=== PATIENT | male | born 1965 | race Caucasian/White ===

== ENCOUNTER 2016-06-20 08:38 | Emergency (ER) | payer OTHER ==
[~2016-06-20] VITALS: Ht 177.8 cm; Wt 81.7 kg
[2016-06-20 08:45] VITALS: TEMP 36.5; Ht 177.8 cm; Wt 81.7 kg
[2016-06-20] MEDS ORDERED: ASPI325T45 PO (08:51)
[2016-06-20] MEDS ORDERED: ONDANSETRON INJ 2 MG/ML 2 ML VIAL IV STA (08:59)
[2016-06-20] MEDS ORDERED: SODIUM CHLORIDE 0.9% 1000ML 1,000 ML IV STA (08:59)
[2016-06-20 09:21] LABS: BASO % 0.1 %; BASO ABS # 0.01 K/uL (0-0.2); COMPLETE YES; EOS % 0.1 %; HEMATOCRIT 42.5 % (42-52); IG% 0.3 %; LYMPH % 1.5 %; LYMPH ABS # 0.22 K/uL (1.2-3.4); MEAN CELL VOLUME 88.5 fL (80-100); MEAN CORPUSCULAR HEMOGLOBIN 32.3 pg (25-34); MEAN CORPUSCULAR HGB CONC 36.5 g/dl (32-36); MEAN PLATELET VOLUME 10.3 fL (7.4-10.4); MONO % 3.4 %; NEUT % 94.6 %; PLATELET COUNT 250 K/uL (130-400); WHITE BLOOD COUNT 15.09 K/uL (4.8-10.8)
[2016-06-20 09:38] LABS: BUN/CREATININE RATIO 18.7 (10-20); CREATININE 0.9 mg/dl (0.60-1.40); POTASSIUM 3.6 mmol/L (3.5-5.1)
--- NOTE | 2016-06-20 09:57 | DIAGNOSTIC IMAGING REPORT ---
ABDOMEN 2VIEW W/PA CHEST RTN CLINICAL HISTORY: Generalized abdominal pain COMPARISON STUDY: No previous studies for comparison. FINDINGS: The erect chest reveals no free air. There is no focal pulmonary consolidation. Erect and supine views the abdomen reveal multiple right abdominal air-fluid levels most of which appear colonic. There are no transition zones indicate bowel obstruction. IMPRESSION: 1. No evidence of bowel obstruction. No evidence of free air 2. Multiple right-sided air-fluid levels, likely colonic. Electronically signed by: Jeff Camara M.D. 06/20/2016 9:56 AM Dictated Date/Time: 06/20/2016 9:55 AM
[2016-06-20 11:15] LABS: URINE APPEARANCE CLEAR (CLEAR); URINE BILIRUBIN NEG (NEG); URINE COLOR YELLOW; URINE NITRITE NEG (NEG); URINE PH >= 9.0 (4.5-7.5); URINE SPECIFIC GRAVITY 1.024 (1.000-1.030); UROBILINOGEN NEG (NEG)
[2016-06-20 11:16] LABS: MANUAL MICROSCOPIC REQUIRED? NO; REVIEW REQ? NO
[2016-06-20] MEDS ORDERED: ONDA4TAB46 PO (11:53)
[2016-06-20 12:10] VITALS: BP 114/82; PULSE 118; O2SAT 98
--- NOTE | 2016-06-20 12:58 | EMERGENCY ROOM VISIT NOTE ---
ED Visit Note First contact with patient: 08:48 Chief Complaint: Vomiting and diarrhea. History of Present Illness: Mr. Garcia is a 51 year-old white male who ambulates into the ED complaining of nausea, vomiting, diarrhea and left lower quadrant abdominal pain. Historically patient reports no significant gastrointestinal or abdominal surgeries. He does report he said left lower quadrant pain for the last couple of years but it has been mild in intensity and has never had it evaluated. Patient reports a acute onset of nausea, vomiting and diarrhea that started approximately 7 hours ago. He reports since that time his symptoms have been constant. He reports she's had about 7-8 episodes of vomiting and about 4-5 episodes of diarrhea. He relates these symptoms to eating last night at approximately 10:00 PM. He queries if this could possibly be food poisoning. He has not identified any aggravating or alleviating factors related to these symptoms. He has not taken any medications for these symptoms prior to arrival at the hospital. Associated with the symptoms he does report he is having left lower quadrant pain as noted previously this is historically been for the last couple of years. He has not identified any increasing pain in his abdomen. He describes his pain as an achy sensation. He rates this discomfort 3/10. Pain is nonradiating. Associated with his symptoms he does report he feels like he could be dehydrated with a dry mouth and sensations of fast breathing but not shortness of breath. Patient denies fevers, chills, sweats, skin eruptions, skin color changes, upper respiratory tract symptoms, chest pain, hematochezia, hematemesis, melena , constipation, urinary symptoms, hematuria, back/flank pain. Review of Systems: As noted above in history of present illness. All body systems were reviewed and found to be negative as noted above. Past Medical History: Hypertension, unspecified skin disorder, unspecified jaw surgery and status post tonsillectomy. Current Medications: Aspirin. Allergies to Medications: Patient denies. Social History: Patient is currently employed; he lives by himself and feels safe in his home environment; he denies tobacco use and admits to alcohol use. Physical Examination: Vital Signs: Date Time Temp Pulse Resp B/P Pulse Ox O2 Delivery O2 Flow Rate FiO2 06/20/16 12:10 118 18 114/82 98 06/20/16 10:50 109 20 114/83 100 Room Air 06/20/16 09:18 99 06/20/16 09:16 96 16 121/75 96 Room Air 06/20/16 08:45 36.5 122 18 130/83 96 Room Air GENERAL: 51-year-old male in mild distress due to symptoms, nontoxic-appearing, afebrile and hemodynamically stable. NEUROLOGICAL: Awake, alert and oriented to person, place and time. Answering questions appropriately and following commands. Normal gait. Good hand eye coordination. SKIN: Warm, dry and pink. No soft tissue eruptions or trauma noted. HEENT: Atraumatic and normocephalic. PERRLA. Sclera white and conjunctiva pink. Oral cavity dry and pink. Pharynx is nonerythematous or edematous. Speech normal. No lymphadenopathy. Trachea midline. No jugular venous distention. BACK: No tenderness over the bony spine. No CVA tenderness. THORAX: Lungs sounds are clear to auscultation and equal bilaterally with symmetrical chest wall. No wheezing, rales or rhonchi. No crepitus, tenderness , subcutaneous air or deformities noted. HEART: Regular rate and rhythm. No gallops, rubs or murmurs are appreciated. ABDOMEN: Flat, soft and nontender. Decreased bowel sounds in all quadrants. No guarding, rigidity or organomegaly. EXTREMITIES: Moves all extremities well on command and with purpose. All distal neurovascular statuses are intact and equal bilaterally. ED Course: Patient is assessed as noted above. Laboratory Testing: Test 06/20/16 09:07 06/20/16 10:54 Range/Units White Blood Count 15.09 4.8-10.8 K/uL Red Blood Count 4.80 4.7-6.1 M/uL Hemoglobin 15.5 14.0-18.0 g/dL Hematocrit 42.5 42-52 % Mean Corpuscular Volume 88.5 80-100 fL Mean Corpuscular Hemoglobin 32.3 25-34 pg Mean Corpuscular Hemoglobin Concent 36.5 32-36 g/dl Platelet Count 250 130-400 K/uL Mean Platelet Volume 10.3 7.4-10.4 fL Neutrophils (%) (Auto) 94.6 % Lymphocytes (%) (Auto) 1.5 % Monocytes (%) (Auto) 3.4 % Eosinophils (%) (Auto) 0.1 % Basophils (%) (Auto) 0.1 % Neutrophils # (Auto) 14.30 1.4-6.5 K/uL Lymphocytes # (Auto) 0.22 1.2-3.4 K/uL Monocytes # (Auto) 0.51 0.11-0.59 K/uL Eosinophils # (Auto) 0.01 0-0.5 K/uL Basophils # (Auto) 0.01 0-0.2 K/uL RDW Standard Deviation 40.4 36.4-46.3 fL RDW Coefficient of Variation 12.6 11.5-14.5 % Immature Granulocyte % (Auto) 0.3 % Immature Granulocyte # (Auto) 0.04 0.00-0.02 K/uL Sodium Level 143 136-145 mmol/L Potassium Level 3.6 3.5-5.1 mmol/L Chloride Level 106 98-107 mmol/L Carbon Dioxide Level 22 21-32 mmol/L Anion Gap 15.0 3-11 mmol/L Blood Urea Nitrogen 17 7-18 mg/dl Creatinine 0.90 0.60-1.40 mg/dl Est Creatinine Clear Calc Drug Dose 99.1 ml/min Estimated GFR () 113.4 Estimated GFR (Non- 97.9 BUN/Creatinine Ratio 18.7 10-20 Random Glucose 131 70-99 mg/dl Calcium Level 9.0 8.5-10.1 mg/dl Total Bilirubin 0.8 0.2-1 mg/dl Direct Bilirubin 0.1 0-0.2 mg/dl Aspartate Amino Transf (AST/SGOT) 16 15-37 U/L Alanine Aminotransferase (ALT/SGPT) 26 12-78 U/L Alkaline Phosphatase 62 45-117 U/L Total Protein 7.6 6.4-8.2 gm/dl Albumin 4.1 3.4-5.0 gm/dl Lipase 99 73-393 U/L Urine Color YELLOW Urine Appearance CLEAR CLEAR Urine pH >= 9.0 4.5-7.5 Urine Specific [place] 1.024 1.000-1.030 Urine Protein NEG NEG Urine Glucose (UA) NEG NEG Urine Ketones 1+ NEG Urine Occult Blood NEG NEG Urine Nitrite NEG NEG Urine Bilirubin NEG NEG Urine Urobilinogen NEG NEG Urine Leukocyte Esterase NEG NEG Acute Abdominal X-Ray Series: Was read by myself and the radiologist and shows A normal-appearing chest with no infiltrates, effusions or pneumothorax. Normal heart silhouette and normal bony periods. Abdominal component shows a nonobstructive gas pattern with multiple right-sided abdominal air-fluid levels but no transition zones indicating bowel obstruction. Patient was hydrated with normal saline and received 4 mg of Zofran IV for nausea. Patient was reassessed multiple times during his stay in the emergency department. Patient's case was reviewed with Dr. Gonzalez; we agreed on diagnostic approach, treatment, disposition and plan. Patient was educated about tonight's findings and instructed on his treatment plan; he verbalizes understanding and agreement with this plan. Clinical Impression: Nausea, vomiting and diarrhea. Abdominal pain. Decision-Making: Initially my differential diagnosis I considered colitis, diverticulitis, gastroenteritis, bowel obstruction, hepatitis, pancreatitis and other causes. Disposition: Patient discharged home in stable condition; prior to departure he was reassessed and subjectively reported that he was pain and symptom-free; reevaluation of his abdominal pain shows that no tenderness or guarding. Plan: Use 650 mg of acetaminophen or 600 mg of ibuprofen every 6 hours as needed for pain. Use Zofran 4 mg every 6 hours as needed for nausea/vomiting. Use [id number] Imodium for return of diarrhea; follow packaging instructions. Use a bland diet for the next 48 hours and increase clear fluids. Follow-up with your family physician for recheck early next week; Wednesday or Wednesday. Return to the ED for worsening/uncontrolled nausea/vomiting/diarrhea, fevers, bloody stools, bloody vomitus, worsening abdominal pain or any new/concerning symptoms.
== END 2016-06-20 12:11 | disposition home or self-care (01) ==
LOC: C.EDB 08:42 → C.EDA 12:11
DX: R11.2 Nausea with vomiting, unspecified (principal); R19.7 Diarrhea, unspecified; R10.32 Left lower quadrant pain; I10 Essential (primary) hypertension; Z98.890 Other specified postprocedural states; Z90.89 Acquired absence of other organs

== ENCOUNTER → 2016-09-01 | Outpatient (CLI) | payer OTHER ==
[~2016-09-01] MED LIST: ASCA500 PO; ASPI325T45 PO; ESCI10TA17 PO; FERR1TAB13 PO; IBUP-1050 PO; MULT-506 PO; MULTCAP7 PO; ONDA4TAB46 PO
--- NOTE | 2016-09-01 13:56 | DIAGNOSTIC IMAGING REPORT ---
RIGHT KNEE 1 OR 2 VIEWS ROUTINE CLINICAL HISTORY: Bilateral knee pain. COMPARISON: None FINDINGS: Alignment of the right knee is anatomic. Joint spaces are preserved. There is no fracture, joint effusion or suspicious lesion. IMPRESSION: Normal right knee radiographs. Electronically signed by: Jay Moore M.D. 09/01/2016 1:54 PM Dictated Date/Time: 09/01/2016 1:54 PM
--- NOTE | 2016-09-01 13:56 | DIAGNOSTIC IMAGING REPORT ---
LEFT KNEE 1 OR 2 VIEWS ROUTINE CLINICAL HISTORY: M25.569 Chronic knee [id number] COMPARISON: None. DISCUSSION: The bones and joint spaces appear intact. There is no evidence of fracture, dislocation or bony disease. There is no evidence for soft tissue swelling. IMPRESSION: Negative study. Electronically signed by: Jose Manuel Corey M.D. 09/01/2016 1:54 PM Dictated Date/Time: 09/01/2016 1:53 PM
--- NOTE | 2016-09-01 13:57 | DIAGNOSTIC IMAGING REPORT ---
LEFT HIP UNILATERAL 2 VIEWS CLINICAL HISTORY: Bilateral hip pain. COMPARISON: None FINDINGS: Alignment of left hip is anatomic. There is no fracture or suspicious lesion. There is no evidence for avascular necrosis. There is mild osteophytosis. Joint space is preserved. IMPRESSION: Mild osteoarthritis of the left hip. Electronically signed by: Jay Moore M.D. 09/01/2016 1:55 PM Dictated Date/Time: 09/01/2016 1:55 PM
--- NOTE | 2016-09-01 13:57 | DIAGNOSTIC IMAGING REPORT ---
RIGHT HIP UNILATERAL 2 VIEWS CLINICAL HISTORY: Bilateral hip pain. COMPARISON: None FINDINGS: Alignment of the right hip is anatomic. There is no fracture or suspicious lesion. There is mild superior joint space narrowing with osteophytosis. There is no evidence for avascular necrosis. IMPRESSION: Mild osteoarthritis of the right hip. Electronically signed by: Jay Moore M.D. 09/01/2016 1:55 PM Dictated Date/Time: 09/01/2016 1:54 PM
[2016-09-01 17:14] LABS: HEMATOCRIT 38.8 % (42-52); MEAN CORPUSCULAR HEMOGLOBIN 31.1 pg (25-34); MEAN CORPUSCULAR HGB CONC 34.5 g/dl (32-36); MEAN PLATELET VOLUME 10.8 fL (7.4-10.4); PLATELET COUNT 244 K/uL (130-400); RED BLOOD COUNT 4.31 M/uL (4.7-6.1); WHITE BLOOD COUNT 4.91 K/uL (4.8-10.8)
[2016-09-01 17:25] LABS: ALT/SGPT 25 U/L (12-78); BLOOD UREA NITROGEN 13 mg/dl (7-18); BUN/CREATININE RATIO 15.3 (10-20); CALCIUM 8.7 mg/dl (8.5-10.1); CARBON DIOXIDE 28 mmol/L (21-32); CHLORIDE 106 mmol/L (98-107); CHOLESTEROL 145 mg/dl (0-200); CREATININE 0.87 mg/dl (0.60-1.40); GLUCOSE 97 mg/dl (70-99); POTASSIUM 3.9 mmol/L (3.5-5.1); SODIUM 141 mmol/L (136-145); TRIGLYCERIDES 50 mg/dl (0-150); VERY LOW DENSITY LIPOPROT CALC 10 mg/dl
[2016-09-01 17:35] LABS: ALB/GLOB RATIO 1.3 (0.9-2); ALKALINE PHOSPHATASE 56 U/L (45-117); AST/SGOT 15 U/L (15-37); CHOLESTEROL/HDL RATIO 2.6; HDL CHOLESTEROL 55 mg/dl; LDL CHOLESTEROL CALCULATED 80 mg/dl
== END | disposition home or self-care (01) ==
LOC: C.RADBC 13:07
PROVIDERS: ATTEND Internal Medicine
DX: Z00.00 Encounter for general adult medical examination without abnormal findings (principal); F41.9 Anxiety disorder, unspecified; M25.561 Pain in right knee; M25.562 Pain in left knee; M16.0 Bilateral primary osteoarthritis of hip

== ENCOUNTER → 2017-03-15 | Outpatient (CLI) | payer OTHER ==
[~2017-03-15] MED LIST changes: -ASCA500 PO; -ESCI10TA17 PO; -FERR1TAB13 PO; -IBUP-1050 PO; -MULT-506 PO; -MULTCAP7 PO; -ONDA4TAB46 PO
[2017-03-15 13:25] LABS: HEMATOCRIT 39.4 % (42-52); MEAN CELL VOLUME 92.7 fL (80-100); MEAN CORPUSCULAR HEMOGLOBIN 32.9 pg (25-34); MEAN CORPUSCULAR HGB CONC 35.5 g/dl (32-36); MEAN PLATELET VOLUME 10.9 fL (7.4-10.4); PLATELET COUNT 211 K/uL (130-400); RED BLOOD COUNT 4.25 M/uL (4.7-6.1)
[2017-03-15 14:19] LABS: FERRITIN 116.6 ng/ml (8.0-388.0)
== END | disposition home or self-care (01) ==
LOC: C.LABBC 11:35
PROVIDERS: ATTEND Internal Medicine
DX: D64.9 Anemia, unspecified (principal)

== ENCOUNTER → 2017-04-28 | Day surgery (SDC) | payer OTHER ==
[2017-04-19 12:06] VITALS: Ht 177.8 cm; Wt 78.2 kg
[~2017-04-28] VITALS: Ht 177.8 cm; Wt 78.2 kg
[~2017-04-28] MED LIST changes: +ASCA500 PO; -ASPI325T45 PO; +ESCI10TA17 PO; +FERR1TAB13 PO; +IBUP-1050 PO; +LIDOCAINE HCL 2% 2 ML VIAL (20MG/ML) ONE; +MULT-506 PO; +MULTCAP7 PO; +PROPOFOL IV EMULSION 10 MG/ML 20 ML VIAL IV ONE; +SODIUM CHLORIDE 0.9% 500ML 500 ML IV ONE
--- NOTE | 2017-04-28 10:16 | Endo History and Physical ---
History & Physical Date of Service: Apr 28, 2017. Chief Complaint: Screening for Colon Cancer Referring Physician: Dr. Brenner History of Present Illness 51 yo CM who presents for screening colonoscopy. Past Surgical History Hx Cardiac Surgery: No Hx Internal Defibrillator: No Hx Pacemaker: No Hx Abdominal Surgery: No Hx of Implantable Prosthesis: No Hx Post-Op Nausea and Vomiting: No Hx Cancer Surgery: No Hx Thoracic Surgery: No Hx Orthopedic: No Hx Urinary Tract Surgery: No Family History None Social History Smoking Status: Former Smoker Hx Substance Use: No Hx Alcohol Use: Yes (1 DRINK/WEEK) Allergies Coded Allergies: No Known Allergies (Verified , 04/28/17) Current Medications Reported Home Medications Medications Dose Route/Sig Max Daily Dose Days Date Category Eye Vitamins (Multiple Vitamins W/ Minerals) 1 Cap Cap 1 Cap PO DAILY 04/19/17 Reported Advil (Ibuprofen) 200 Mg Tab 400-600 Mg PO Q6H PRN 04/19/17 Reported Multivitamin (Multivitamins) Tab 1 Tab PO DAILY 04/19/17 Reported Kp Ferrous Sulfate (Ferrous Sulfate) 325 Mg Tab 1 Tab PO DAILY 04/19/17 Reported Vitamin C (Ascorbic Acid) 500 Mg Tab 1 Tab PO DAILY 04/19/17 Reported Lexapro (Escitalopram Oxalate) 10 Mg Tab 10 Mg PO MIDDAY 04/19/17 Reported Vital Signs Weight (Kilograms): 78.18 Height (Feet): 5 Height (Inches): 10 Date Time Temp Pulse Resp B/P (MAP) Pulse Ox O2 Delivery O2 Flow Rate FiO2 04/28/17 10:00 36.5 75 20 136/88 (104) 100 Room Air Physical Exam General Appearance: WD/WN, no apparent distress Respiratory/Chest: Auscultation: breath sounds normal Cardiovascular: Heart Auscultation: RRR Abdomen: Bowel Sounds: normal Inspection & Palpation: soft, non-distended, no tenderness, guarding & rebound Assessment and Plan Assessment: 51 yo CM who presents for screening colonoscopy. Plan: Proceed with colonoscopy.
--- NOTE | 2017-04-28 10:58 | Anesthesiology Progress Note ---
Anesthesia Post Op Note Date & Time Apr 28, 2017 at 10:58 Vital Signs Pain Intensity: 0 Vital Signs Past 12 Hours Date Time Temp Pulse Resp B/P (MAP) Pulse Ox O2 Delivery O2 Flow Rate FiO2 04/28/17 10:42 71 12 101/67 (78) 97 Nasal Cannula 2 04/28/17 10:00 36.5 75 20 136/88 (104) 100 Room Air Notes Mental Status: alert / awake / arousable, participated in evaluation Pt Amnestic to Procedure: Yes Nausea / Vomiting: adequately controlled Pain: adequately controlled Airway Patency, RR, SpO2: stable & adequate BP & HR: stable & adequate Hydration State: stable & adequate Anesthetic Complications: no major complications apparent
--- NOTE | 2017-04-28 11:01 | Discharge Instructions ---
Endoscopy Patient Instructions Date / Procedure(s) Performed Apr 28, 2017. Colonoscopy Allergy Information Coded Allergies: No Known Allergies (Verified , 04/28/17) Discharge Date / Findings Apr 28, 2017. Colon polyps Diverticulosis Internal hemorrhoids Medication Instructions OK to resume all medications today as prescribed Reported Home Medications Medications Dose Route/Sig Max Daily Dose Days Date Category Eye Vitamins (Multiple Vitamins W/ Minerals) 1 Cap Cap 1 Cap PO DAILY 04/19/17 Reported Advil (Ibuprofen) 200 Mg Tab 400-600 Mg PO Q6H PRN 04/19/17 Reported Multivitamin (Multivitamins) Tab 1 Tab PO DAILY 04/19/17 Reported Kp Ferrous Sulfate (Ferrous Sulfate) 325 Mg Tab 1 Tab PO DAILY 04/19/17 Reported Vitamin C (Ascorbic Acid) 500 Mg Tab 1 Tab PO DAILY 04/19/17 Reported Lexapro (Escitalopram Oxalate) 10 Mg Tab 10 Mg PO MIDDAY 04/19/17 Reported Provider Instructions Activity Restrictions - No exercising or heavy lifting for 24 hours. - Do not drink alcohol the day of the procedure. - Do not drive a car or operate machinery until the day after the procedure. - Do not make any important decisions or sign important papers in 24 hours after the procedure. Following Day: - Return to full activity which may include returning to work/school. Diet Start your diet with liquids and light foods (jello, soup, juice, toast). Then eat your usual diet if not nauseated. Treatment For Common After Affects For mild abdominal pain, bloating, or excessive gas: - Rest - Eat lightly - Lie on right side Follow-Up Information Follow-up with Dr. Brenner as scheduled Anesthesia Information What You Should Know You have had a procedure that required some medicine to reduce anxiety and discomfort. This treatment is called moderate sedation. After receiving the treatment, you may be sleepy, but you will be able to breathe on your own. The effects of the treatment may last for several hours. Follow these instructions along with Activity/Diet recommendations noted above: * Do NOT do anything where dizziness or clumsiness would be dangerous. * Rest quietly at home today, then you can be up and about tomorrow. * Have a responsible person stay with you the rest of today. * You may have had an I.V. today. If so, you may take the dressing off later today. Recommendations Call your doctor if: * Trouble breathing * Continuous vomiting for more than 24 hours * Temperature above 101 degrees * Severe abdominal pain or bloating * Pain not relieved by pain medicine ordered * There is increased drainage or redness from any incision * A large amount of rectal bleeding greater than 2-3 tablespoons. (If you had a polyp/s removed or have hemorrhoids, a small amount of blood - from the rectum is to be expected.) * You have any unanswered questions or concerns. IN THE EVENT OF A SERIOUS EMERGENCY, GO TO THE NEAREST EMERGENCY ROOM Your discharge instructions were prepared by provider Benjamin Tovar. Patient Instructions Signature Page Arsen Garcia Patient (or Guardian) Signature/Date: I have read and understand the instructions given to me by my caregivers. Caregiver/RN/Doctor Signature/Date: The above-named patient and/or guardian has received patient instructions on this date. + Original Patient Signature Page (only) stays with chart. Please make copy for patient.
--- NOTE | 2017-04-28 11:09 | GI REPORT ---
Procedure Date: 04/28/2017 10:14 AM Procedure: Colonoscopy Indications: Screening for colorectal malignant neoplasm Medicines: Monitored Anesthesia Care Complications: No immediate complications. Estimated Blood Loss: Estimated blood loss: none. Procedure: Pre-Anesthesia Assessment: - Prior to the procedure, a History and Physical was performed, and patient medications and allergies were reviewed. The patient's tolerance of previous anesthesia was also reviewed. The risks and benefits of the procedure and the sedation options and risks were discussed with the patient. All questions were answered, and informed consent was obtained. Prior Anticoagulants: The patient has taken no previous anticoagulant or antiplatelet agents. ASA Grade Assessment: I - A normal, healthy patient. After reviewing the risks and benefits, the patient was deemed in satisfactory condition to undergo the procedure. After I obtained informed consent, the scope was passed under direct vision. Throughout the procedure, the patient's blood pressure, pulse, and oxygen saturations were monitored continuously. The scope was introduced through the anus and advanced to the terminal ileum. The colonoscopy was performed without difficulty. The patient tolerated the procedure well. The quality of the bowel preparation was good. The terminal ileum, ileocecal valve, appendiceal orifice, and rectum were photographed. Findings: A 4 mm polyp was found in the ascending colon. The polyp was sessile. The polyp was removed with a cold biopsy forceps. Resection and retrieval were complete. A 5 mm polyp was found in the transverse colon. The polyp was sessile. The polyp was removed with a hot snare. Resection and retrieval were complete. Multiple small-mouthed diverticula were found in the sigmoid colon. Non-bleeding internal hemorrhoids were found during retroflexion. The hemorrhoids were small. Impression: - One 4 mm polyp in the ascending colon, removed with a cold biopsy forceps. Resected and retrieved. - One 5 mm polyp in the transverse colon, removed with a hot snare. Resected and retrieved. - Diverticulosis in the sigmoid colon. - Non-bleeding internal hemorrhoids. Recommendation: - Resume previous diet. - Continue present medications. - Repeat colonoscopy for surveillance based on pathology results. - Return to primary care physician as previously scheduled. Benjamin Tovar DO 04/28/2017 11:08:28 AM This report has been signed electronically. Note Initiated On: 04/28/2017 10:14 AM I attest to the content of the Intraoperative Record and orders documented therein, exceptions below
[2017-04-28 11:12] VITALS: BP 111/69; PULSE 67; O2SAT 96
== END | disposition home or self-care (01) ==
LOC: C.GI 09:36
PROVIDERS: ATTEND Internal Medicine
DX: Z12.11 Encounter for screening for malignant neoplasm of colon (principal); D12.2 Benign neoplasm of ascending colon; D12.3 Benign neoplasm of transverse colon; K57.30 Diverticulosis of large intestine without perforation or abscess without bleeding; K64.8 Other hemorrhoids; Z87.891 Personal history of nicotine dependence; Z79.899 Other long term (current) drug therapy; Z90.89 Acquired absence of other organs